=== PATIENT | female | born 1930 | race Caucasian/White ===

== ENCOUNTER 2018-12-20 14:03 | Inpatient (IN) ==
[2018-12-20] MEDS ORDERED: ONDANSETRON 4 MG/2 ML VIAL IV PRN (17:14)
[2018-12-20] MEDS ORDERED: ACETAMINOPHEN 325 MG TABLET PO PRN (17:14)
[2018-12-20] MEDS ORDERED: SODIUM CHLORIDE 0.9% 1,000 ML IV SCH (18:00)
[2018-12-20 18:01] LABS: Basophils % 0.8 % (0.0-0.8); Eosinophils # 0.2 10*3/uL (0.0-0.87); Hematocrit 30.4 VOL% (35.7-47.0); Hemoglobin 9.4 GM/DL (12.0-16.0); Immature Granulocytes % 0.2 %; Immature Granulocytes Absolute 0.01 #; Lymphocytes # 1.6 10*3/uL (1.4-4.0); Lymphocytes % 30.5 % (21.3-54.2); Mean Corpuscular HGB Conc 30.9 GM/DL (32-36); Mean Corpuscular Volume 86.1 FL (87-102); Mean Platelet Volume 11.5 FL (9.6-12.0); Monocytes % 10.5 % (1.7-12.7); Platelet Count 259 T/CUMM (130-400); Red Blood Count 3.53 MC/CUMM (3.8-5.5); Red Cell Distribution Width 15.2 % (9.3-17.3); White Blood Count 5.3 T/CUMM (4-12)
[2018-12-20 18:14] LABS: Albumin 3.3 G/DL (3.4-5.0); Bilirubin,Total 0.5 MG/DL (0.2-1.0); Calcium 8.9 MG/DL (8.5-10.1); Total Protein 6.6 G/DL (6.4-8.3)
[2018-12-20 18:29] LABS: INR 1.4; Partial Thromboplastin Time 33.8 SECS (20.8-36.0)
[2018-12-20] MEDS ORDERED: GLUCAGON 1 MG VIAL IM PRN (18:43)
[2018-12-20] MEDS ORDERED: DEXTROSE 10% 250 ML BAG IV PRN (18:43)
[2018-12-20 19:35] LABS: Apearance,Urine CLEAR (Clear); Bilirubin,Urine Negative (Negative); Blood, Urine Negative (Negative); Glucose,Urine (UA) Negative (Negative); Ketones,Urine Negative (Negative); Mucus,Urine Occasional /LPF (Occasional); Nitrite,Urine Negative (Negative); Protein,Urine Negative; RBC,Urine 2 /HPF (0-4); Squamous Epithelial Cell,Urine Occasional /HPF (0-10); Transitional Epi Cells,Urine Occasional /HPF (<1); Urine Color Yellow (Yellow); Urine Specific Gravity 1.006 (1.001-1.035); Urine Urobilinogen < 2.0 EU/DL (0.2-1.0); WBC,Urine 3 /HPF (0-6)
[2018-12-20] MEDS ORDERED: SODIUM CHLORIDE 0.9% 1,000 ML IV PRN (19:36)
[2018-12-20] MEDS: PANTOPRAZOLE 40 MG VIAL IV SCH (20:27)
[2018-12-20] MEDS: INSULIN LISPRO 100 UNIT/ML SUBCUT SCH (20:37)
[2018-12-21 01:29] LABS: Albumin 3.1 G/DL (3.4-5.0); Bilirubin,Total 0.5 MG/DL (0.2-1.0); Calcium 8.7 MG/DL (8.5-10.1); Osmolality,Calculated 281.3 MOS/KG (273-304); Risk Ratio 2.28; Thyroid Stimulating Hormone 3.31 uIU/ml (0.358-3.74); Total Protein 6.3 G/DL (6.4-8.3)
[2018-12-21 01:34] LABS: Basophils % 0.5 % (0.0-0.8); Eosinophils # 0.2 10*3/uL (0.0-0.87); Eosinophils % 3.8 % (0.00-10.9); Hematocrit 29.3 VOL% (35.7-47.0); Hemoglobin 9.1 GM/DL (12.0-16.0); Immature Granulocytes % 0.2 %; Immature Granulocytes Absolute 0.01 #; Lymphocytes # 2.1 10*3/uL (1.4-4.0); Lymphocytes % 36.5 % (21.3-54.2); Mean Corpuscular HGB Conc 31.1 GM/DL (32-36); Mean Corpuscular Volume 85.2 FL (87-102); Monocytes % 10.1 % (1.7-12.7); Neutrophils % 48.9 % (38.7-73.9); Platelet Count 253 T/CUMM (130-400); Red Blood Count 3.44 MC/CUMM (3.8-5.5); Red Cell Distribution Width 15.3 % (9.3-17.3); White Blood Count 5.8 T/CUMM (4-12)
[2018-12-21] MEDS ORDERED: PROMETHAZINE INJ 25 MG in SODIUM CHLORIDE 0.9% 50 ML IV ONE (03:24)
[2018-12-21] MEDS ORDERED: PROMETHAZINE 25 MG/1 ML VIAL IM ONE (03:27)
[2018-12-21] MEDS ORDERED: clonazePAM 0.5 MG TABLET PO ONE (03:46)
[2018-12-21] MEDS: FLUoxetine 20 MG CAPSULE PO SCH (08:29)
[2018-12-21] MEDS: ATORVASTATIN 20 MG TABLET PO SCH (08:29)
[2018-12-21] MEDS: NEBIVOLOL 5 MG TABLET PO SCH (08:29)
[2018-12-21] MEDS: CHOLECALCIFEROL 1,000 UNIT TABLET PO SCH (08:29)
[2018-12-21] MEDS: INSULIN LISPRO 100 UNIT/ML SUBCUT SCH ×4 (08:30→21:42)
[2018-12-21] MEDS: PANTOPRAZOLE 40 MG VIAL IV SCH ×2 (08:30→21:43)
[2018-12-22 05:39] LABS: Basophils % 0.8 % (0.0-0.8); Eosinophils # 0.3 10*3/uL (0.0-0.87); Eosinophils % 7.2 % (0.00-10.9); Hemoglobin 8.7 GM/DL (12.0-16.0); Immature Granulocytes % 0.3 %; Immature Granulocytes Absolute 0.01 #; Lymphocytes # 1.2 10*3/uL (1.4-4.0); Lymphocytes % 33.1 % (21.3-54.2); Mean Corpuscular HGB Conc 31.1 GM/DL (32-36); Mean Corpuscular Volume 85.9 FL (87-102); Mean Platelet Volume 12.1 FL (9.6-12.0); Neutrophils % 45.6 % (38.7-73.9); Platelet Count 210 T/CUMM (130-400); Red Blood Count 3.26 MC/CUMM (3.8-5.5); White Blood Count 3.6 T/CUMM (4-12)
[2018-12-22 06:07] LABS: Albumin 2.7 G/DL (3.4-5.0); Bilirubin,Total 0.6 MG/DL (0.2-1.0); Calcium 8.5 MG/DL (8.5-10.1); Total Protein 5.8 G/DL (6.4-8.3)
[2018-12-22] MEDS: PANTOPRAZOLE 40 MG VIAL IV SCH ×2 (09:15→21:06)
[2018-12-22] MEDS: FLUoxetine 20 MG CAPSULE PO SCH (09:15)
[2018-12-22] MEDS: ATORVASTATIN 20 MG TABLET PO SCH (09:15)
[2018-12-22] MEDS: CHOLECALCIFEROL 1,000 UNIT TABLET PO SCH (09:15)
[2018-12-22] MEDS: NEBIVOLOL 5 MG TABLET PO SCH (09:15)
[2018-12-22] MEDS: INSULIN LISPRO 100 UNIT/ML SUBCUT SCH ×4 (09:16→21:25)
[2018-12-22] MEDS: clonazePAM 0.5 MG TABLET PO PRN (21:07)
[2018-12-23 05:56] LABS: Basophils % 0.7 % (0.0-0.8); Eosinophils # 0.3 10*3/uL (0.0-0.87); Eosinophils % 4.6 % (0.00-10.9); Hematocrit 28.8 VOL% (35.7-47.0); Hemoglobin 8.9 GM/DL (12.0-16.0); Lymphocytes # 1.7 10*3/uL (1.4-4.0); Mean Corpuscular HGB Conc 30.9 GM/DL (32-36); Mean Platelet Volume 12.2 FL (9.6-12.0); Monocytes % 11.4 % (1.7-12.7); Neutrophils % 52.3 % (38.7-73.9); Platelet Count 216 T/CUMM (130-400); Red Blood Count 3.39 MC/CUMM (3.8-5.5); White Blood Count 5.5 T/CUMM (4-12)
[2018-12-23 06:24] LABS: Albumin 2.8 G/DL (3.4-5.0); Bilirubin,Total 0.5 MG/DL (0.2-1.0); Calcium 8.8 MG/DL (8.5-10.1); Total Protein 5.9 G/DL (6.4-8.3)
[2018-12-23] MEDS: INSULIN LISPRO 100 UNIT/ML SUBCUT SCH ×2 (08:00→12:40)
[2018-12-23] MEDS ORDERED: HYDROXYCHLOROQUINE 200 MG TABLET PO SCH (09:00)
[2018-12-23] MEDS: ATORVASTATIN 20 MG TABLET PO SCH (09:05)
[2018-12-23] MEDS: NEBIVOLOL 5 MG TABLET PO SCH (09:05)
[2018-12-23] MEDS: FLUoxetine 20 MG CAPSULE PO SCH (09:05)
[2018-12-23] MEDS: PANTOPRAZOLE 40 MG VIAL IV SCH (09:05)
[2018-12-23] MEDS: CHOLECALCIFEROL 1,000 UNIT TABLET PO SCH (09:05)
[2018-12-23] MEDS: clonazePAM 0.5 MG TABLET PO PRN (11:31)
[2018-12-23 11:46] VITALS: BP 122/71
[2018-12-24] MEDS ORDERED: ASPIRIN EC 81 MG TABLET PO SCH (09:00)
== END 2018-12-23 13:30 | disposition home or self-care (01) | DRG 813 ==
LOC: N.5E → SUATTDRO 17:14
PROVIDERS: ADMIT Internal Medicine; ATTEND Internal Medicine